=== PATIENT | female | born 1995 | race American Indian/Alaskan Native ===

== ENCOUNTER 2018-04-22 16:09 | Emergency (ER) | payer MEDICAID ==
[2018-04-22 16:25] VITALS: BP 114/51
[2018-04-22 16:50] LABS: Bacteria,Urine 2+ /HPF (Negative); Bilirubin,Urine NEG (Negative); Blood,Urine NEG (Negative); Color,Urine Yellow (Yellow); Mucus,Urine FEW /HPF; Protein,Urine <15 mg/dL mg/dL (Negative); Urobilinogen,Urine < 2.0 mg/dL (<2.0)
[2018-04-22 16:51] LABS: HCG Qualitative,Urine Positive (Negative)
--- NOTE | 2018-04-22 17:22 | Emergency Department Report ---
ED Female HPI - General Chief complaint: Urogenital-Female Stated complaint: STD TEST Time Seen by Provider: 04/22/18 17:19 Source: patient Mode of arrival: Ambulatory Limitations: No Limitations - History of Present Illness Initial comments: This is a 22-year-old female here reports that she is having vaginal discharge for 2 days. She said that she was exposed to gonorrhea from her warfarin and he told her to good check. Patient says she is but she does not many weeks. She is does not have OB follow-up and she is not taking vitamin. He denies any abdominal pain or vaginal bleeding. Denies any related concerns she just says she is here to be treated because her boyfriend told her to get checked. Pain is 0-10 MD Complaint: vaginal discharge, possible STD Onset/Timin -: days(s) Severity scale (0 -10): 0 Are you Now?: Yes Associated Symptoms: vaginal discharge. denies: vaginal bleeding, abdominal pain, nausea/vomiting, fever/chills, headaches, loss of appetite, dysuria, hematuria, rash, seizure, shortness of breath, syncope, weakness - Related Data Sexually active: Yes Previous Rx's Medication Instructions Recorded Last Taken Type Vits96/Iron Fum/Folic 1 each PO QDAY 30 Days #30 tablet 04/22/18 Unknown Rx [ Tablet] Allergies Allergy/AdvReac Type Severity Reaction Status Date / Time No Known Allergies Allergy Verified 04/22/18 16:21 ED Review of Systems ROS: Stated complaint: STD TEST Other details as noted in HPI Constitutional: denies: chills, fever ENT: denies: ear pain, throat pain, congestion Respiratory: denies: cough, shortness of breath, wheezing Cardiovascular: denies: chest pain, palpitations, edema, syncope Gastrointestinal: denies: abdominal pain, nausea, vomiting, diarrhea, constipation, hematemesis, hematochezia Genitourinary: discharge. denies: urgency, dysuria, frequency, hematuria Musculoskeletal: denies: back pain, joint swelling, arthralgia, myalgia Skin: denies: rash Neurological: denies: headache, numbness, paresthesias, abnormal gait, vertigo ED Past Medical Hx - Past Medical History Previous Medical History?: No Hx Hypertension: No Hx Diabetes: No Hx Deep Vein Thrombosis: No Hx Renal Disease: No Hx Sickle Cell Disease: No Hx Seizures: No Hx Asthma: No - Surgical History Past Surgical History?: Yes Additional Surgical History: csection - Family History Family history: hypertension - Social History Smoking Status: Never Smoker Substance Use Type: None - Medications Home Medications: Home Medications Medication Instructions Recorded Confirmed Last Taken Type Vits96/Iron Fum/Folic 1 each PO QDAY 30 Days #30 tablet 04/22/18 Unknown Rx [ Tablet] ED Physical Exam - General Limitations: No Limitations General appearance: alert, in no apparent distress - Head Head exam: Present: atraumatic, normocephalic, normal inspection - ENT ENT exam: Present: normal exam, normal orophraynx, mucous membranes moist - Neck Neck exam: Present: normal inspection, full ROM. Absent: tenderness, lymphadenopathy - Respiratory Respiratory exam: Present: normal lung sounds bilaterally. Absent: respiratory distress, chest wall tenderness - Cardiovascular Cardiovascular Exam: Present: regular rate, normal rhythm, normal heart sounds - GI/Abdominal GI/Abdominal exam: Present: soft, tenderness (left lower quadrant mild tenderness), normal bowel sounds. Absent: distended, guarding, rebound, rigid, organomegaly - Extremities Exam Extremities exam: Present: normal inspection, full ROM, normal capillary refill, other (No cce. + 2 pulses in all extremities, no neurovascular compromise). Absent: tenderness, pedal edema, joint swelling, calf tenderness - Back Exam Back exam: Present: normal inspection, full ROM, other (ambulates without any difficulties). Absent: CVA tenderness (R), CVA tenderness (L), rash noted - Neurological Exam Neurological exam: Present: alert, oriented X3, normal gait - Psychiatric Psychiatric exam: Present: normal affect, normal mood - Skin Skin exam: Present: warm, dry, intact, normal color. Absent: rash ED Course Vital Signs 04/22/18 16:22 Temperature 98 F Pulse Rate 73 Respiratory 16 Rate Blood Pressure 114/51 O2 Sat by Pulse 100 Oximetry - Reevaluation(s) Reevaluation #1: 04/22/18 18:38 Patient treated with Rocephin 250 mg and a azithromycin 1 g to treat gonorrhea and chlamydia as she says she was exposed to gonorrhea from her boyfriend. No adverse reaction. ED Medical Decision Making - Lab Data Lab Results 04/22/18 Range/Units 16:35 Urine Color Yellow (Yellow) Urine Turbidity Clear (Clear) Urine pH 8.0 H (5.0-7.0) Ur Specific [place] 1.011 (1.003-1.030) Urine Protein <15 mg/dl (Negative) mg/dL Urine Glucose (UA) Neg (Negative) mg/dL Urine Ketones Neg (Negative) mg/dL Urine Blood Neg (Negative) Urine Nitrite Neg (Negative) Urine Bilirubin Neg (Negative) Urine Urobilinogen < 2.0 (<2.0) mg/dL Ur Leukocyte Esterase Neg (Negative) Urine WBC (Auto) 1.0 (0.0-6.0) /HPF Urine RBC (Auto) 1.0 (0.0-6.0) /HPF U Epithel Cells (Auto) < 1.0 (0-13.0) /HPF Urine Bacteria (Auto) 2+ (Negative) /HPF Urine Mucus Few /HPF Urine HCG, Qual Positive A (Negative) Gonorrhea and Chlamydia sent and pending - Medical Decision Making This is a 22-year-old female here reports that she is and her boyfriend told her that he was treated for gonorrhea so she needs to get tested. Patient is here requesting STD testing. She has a vaginal discharge and she agreed to be treated therefore she was treated with Rocephin 250 mg IM and azithromycin 1 g by mouth without any adverse reaction. Patient is not having any related problems. She does not have [facility] so refer her to my [facility] who is on- call and I will start her on vitamin. I discussed diagnosis, treatment plan and told her that she needs to return to follow-up with [facility] and started on vitamin. I discussed her if she had vaginal pain or abdominal pain to return to the emergency room and to refrain from having sexual activity over the next 2 weeks and to return to medical records department in 4-5 days with her ID to get her gonorrhea and chlamydia tests results. She agreed and discharged home a prescription for vitamins Critical care attestation.: If time is entered above; I have spent that time in minutes in the direct care of this critically ill patient, excluding procedure time. ED Disposition Clinical Impression: Exposure to STD Vaginal discharge during Qualifiers: Trimester: first trimester Qualified Code(s): O26.891 - Other specified related conditions, first trimester; N89.8 - Other specified noninflammatory disorders of vagina Disposition: DC-01 TO HOME OR SELFCARE Is pt being admited?: No Does the pt Need Aspirin: No Condition: Stable Instructions: Safe Sex (ED), Sexually Transmitted Diseases (ED) Additional Instructions: Please follow up with my [facility] in 3 days regarding in and start taking vitamin You are treated for gonorrhea and chlamydia and emergency room and he will need to get checked in 7 days to make sure that it is eradicated. You can returns to medical records department in 4-5 days to get your gonorrhea and chlamydia test results3 Few develop abdominal pain and vaginal bleeding. Return to the emergency room TEJA otherwise scheduled appointment to see [facility] Prescriptions: Vits96/Iron Fum/Folic [ Tablet] 1 each PO QDAY 30 Days #30 tablet Referrals: [facility] [Provider Group] - 2-3 Days [facility] [Provider Group] - 2-3 Days Forms: Work/School Release Form(ED)
[2018-04-22] MEDS ORDERED: ZITHROMAX PO ONE (18:02)
[2018-04-22] MEDS ORDERED: ROCEPHIN IM ONE (18:02)
[2018-04-22] MEDS ORDERED: XYLOCAINE 1% MPF 5 mL INFILTRATI ONE (18:02)
== END 2018-04-22 19:08 | disposition home or self-care (01) ==
LOC: ED 16:09
DX: O26.891 Other specified pregnancy related conditions, first trimester (principal); N89.8 Other specified noninflammatory disorders of vagina; Z20.2 Contact with and (suspected) exposure to infections with a predominantly sexual mode of transmission; Z3A.01 Less than 8 weeks gestation of pregnancy
CPT/HCPCS: 81001; 81025; 87591; 96372; 99283; J0696

== ENCOUNTER 2018-07-04 16:05 | Emergency (ER) | payer MEDICAID ==
--- NOTE | 2018-07-04 16:16 | Emergency Department Report ---
Blank Doc - Documentation Documentation: This is a 22-year-old female that presents with left sided pelvic pain with va ginal discharge and dysuria. Denies any vaginal bleeding. Stated is but denies knowing how far along. This initial assessment/diagnostic orders/clinical plan/treatment(s) is/are subject to change based on patient's health status, clinical progression and re- assessment by fellow clinical providers in the ED. Further treatment and workup at subsequent clinical providers discretion. Patient/guardians urged not to elope from the ED as their condition may be serious if not clinically assessed and managed. Initial orders include: 1- Patient sent to [facility] for further evaluation and treatment 2- labs 3- UA 4- US OB
[2018-07-04 16:45] LABS: Basophils % (Auto) 0.6 % (0.0-1.8); Eosinophils % (Auto) 1.5 % (0.0-4.3); Hematocrit 25.7 % (30.3-42.9); Hemoglobin 8.8 gm/dl (10.1-14.3); Lymphocytes % (Auto) 33.3 % (13.4-35.0); Mean Corpuscular HGB Conc 34 % (30-34); Mean Corpuscular Volume 78 fl (79-97); Monocytes % (Auto) 8.8 % (0.0-7.3); Platelet Count 268 K/mm3 (140-440); Red Blood Count 3.29 M/mm3 (3.65-5.03)
[2018-07-04 16:51] LABS: Eosinophils # (Auto) 0.1 K/mm3 (0.0-0.4); Lymphocytes # (Auto) 1.9 K/mm3 (1.2-5.4); Monocytes # (Auto) 0.5 K/mm3 (0.0-0.8)
[2018-07-04 17:17] LABS: BUN/Creatinine Ratio 10; Blood Urea Nitrogen 6 mg/dL (7-17); Calcium 8.6 mg/dL (8.4-10.2); Hemolysis Index 1
--- NOTE | 2018-07-04 19:37 | Emergency Department Report ---
ED Abdominal Pain HPI - General Chief Complaint: Abdominal Pain Stated Complaint: / LFT SIDE STOMACH [id number] Time Seen by Provider: 07/04/18 16:14 Source: patient Mode of arrival: Ambulatory Limitations: No Limitations - History of Present Illness Initial Comments: This is a 22-year-old female that presents with left sided pelvic pain with vag inal discharge and dysuria. Denies any vaginal bleeding. Stated is but denies knowing how far along. pt advises not sexually active no concern for STI, there is no n/v no fever or chills, pt does endorse urinary urgency and frequency for past 4 days hx of bv MD Complaint: abdominal pain Onset/Timin -: week(s) Location: LLQ, RLQ Radiation: none Migration to: no migration Severity: moderate Severity scale (0 -10): 7 Quality: cramping Consistency: intermittent Improves With: nothing Worsens With: nothing Associated Symptoms: denies: nausea, vomiting, diarrhea, fever, chills - Related Data LMP Date: 02/07/18 LMP (females 10-50): other (G5, P4, A0 Csection x 4) Previous Rx's Medication Instructions Recorded Last Taken Type Vits96/Iron Fum/Folic 1 each PO QDAY 30 Days #30 tablet 04/22/18 Unknown Rx [ Tablet] Fluconazole [Diflucan TAB] 150 mg PO ONCE #1 tablet 07/04/18 Unknown Rx Nitrofurantoin Monohyd/M-Cryst 100 mg PO BID #14 capsule 07/04/18 Unknown Rx [Macrobid 100 mg Capsule] metroNIDAZOLE 0.75% [Vandazole 1 applicator VG BID 10 Days #1 tube 07/04/18 Unknown Rx 0.75% VAGINAL] Allergies Allergy/AdvReac Type Severity Reaction Status Date / Time No Known Allergies Allergy Verified 04/22/18 16:21 ED Review of Systems ROS: Stated complaint: / LFT SIDE STOMACH [id number] Other details as noted in HPI Constitutional: denies: chills, fever Eyes: denies: eye pain, eye discharge, vision change ENT: denies: ear pain, throat pain Respiratory: denies: cough, shortness of breath, wheezing Cardiovascular: as per HPI Endocrine: no symptoms reported Gastrointestinal: denies: nausea, vomiting, constipation Genitourinary: urgency, dysuria, frequency, discharge (white thick malodorous ). denies: hematuria, abnormal menses, dyspareunia Musculoskeletal: denies: back pain, joint swelling, arthralgia Skin: denies: rash, lesions Neurological: denies: headache, weakness, paresthesias Psychiatric: denies: anxiety, depression Hematological/Lymphatic: denies: easy bleeding, easy bruising ED Past Medical Hx - Past Medical History Previous Medical History?: No Hx Hypertension: No Hx Diabetes: No Hx Deep Vein Thrombosis: No Hx Renal Disease: No Hx Sickle Cell Disease: No Hx Seizures: No Hx Asthma: No - Surgical History Past Surgical History?: Yes Additional Surgical History: csection - Social History Smoking Status: Never Smoker Substance Use Type: None - Medications Home Medications: Home Medications Medication Instructions Recorded Confirmed Last Taken Type Vits96/Iron Fum/Folic 1 each PO QDAY 30 Days #30 tablet 04/22/18 Unknown Rx [ Tablet] Fluconazole [Diflucan TAB] 150 mg PO ONCE #1 tablet 07/04/18 Unknown Rx Nitrofurantoin Monohyd/M-Cryst 100 mg PO BID #14 capsule 07/04/18 Unknown Rx [Macrobid 100 mg Capsule] metroNIDAZOLE 0.75% [Vandazole 1 applicator VG BID 10 Days #1 tube 07/04/18 Unknown Rx 0.75% VAGINAL] ED Physical Exam - General Limitations: No Limitations General appearance: alert, in no apparent distress - Head Head exam: Present: atraumatic, normocephalic - Eye Eye exam: Present: PERRL, EOMI - ENT ENT exam: Present: mucous membranes moist - Neck Neck exam: Present: normal inspection - Respiratory Respiratory exam: Present: normal lung sounds bilaterally. Absent: respiratory distress - Cardiovascular Cardiovascular Exam: Present: regular rate, normal rhythm. Absent: systolic murmur, diastolic murmur, rubs, gallop - GI/Abdominal GI/Abdominal exam: Present: soft, normal bowel sounds. Absent: distended, tenderness, guarding, rebound, rigid, bruit, hernia - Rectal Rectal exam: Present: deferred - External exam: Present: normal external exam. Absent: erythema, swelling, lesions, lacerations, ecchymosis, bleeding Speculum exam: Present: erythema, vaginal discharge (mild white thick malodorous ). Absent: cervical discharge, vaginal bleeding, foreign body, tissue, laceration Bi-manual exam: Absent: cervical motion tendernes - Extremities Exam Extremities exam: Present: normal inspection, full ROM - Back Exam Back exam: Present: normal inspection, full ROM. Absent: tenderness, CVA tenderness (R), CVA tenderness (L), muscle spasm, paraspinal tenderness, rash noted - Neurological Exam Neurological exam: Present: alert, oriented X3, normal gait, reflexes normal - Psychiatric Psychiatric exam: Present: normal affect, normal mood - Skin Skin exam: Present: warm, dry, intact, normal color. Absent: rash ED Course Vital Signs 07/04/18 07/04/18 16:15 19:57 Temperature 98.3 F 97.4 F L Pulse Rate 82 68 Respiratory 16 20 Rate Blood Pressure 116/62 Blood Pressure 105/50 [Left] O2 Sat by Pulse 100 99 Oximetry ED Medical Decision Making - Lab Data Result diagrams: 07/04/18 16:27 07/04/18 16:27 Labs 07/04/18 07/04/18 07/04/18 16:27 16:27 16:27 WBC 5.6 RBC 3.29 L Hgb 8.8 L Hct 25.7 L MCV 78 L MCH 27 L MCHC 34 RDW 17.0 H Plt Count 268 Lymph % (Auto) 33.3 [place] % (Auto) 8.8 H Eos % (Auto) 1.5 Baso % (Auto) 0.6 Lymph # 1.9 [place] # 0.5 Eos # 0.1 Baso # 0.0 Seg Neutrophils % 55.8 Seg Neutrophils # 3.1 Sodium 137 Potassium 3.6 Chloride 102.8 Carbon Dioxide 25 Anion Gap 13 BUN 6 L Creatinine 0.6 L Estimated GFR > 60 BUN/Creatinine Ratio 10 Glucose 92 Calcium 8.6 HCG, Quant 44791 H Urine Color Urine Turbidity Urine pH Ur Specific [place] Urine Protein Urine Glucose (UA) Urine Ketones Urine Blood Urine Nitrite Urine Bilirubin Urine Urobilinogen Ur Leukocyte Esterase Urine WBC (Auto) Urine RBC (Auto) U Epithel Cells (Auto) Urine Bacteria (Auto) Urine Mucus Urine Yeast (Budding) 07/04/18 19:20 WBC RBC Hgb Hct MCV MCH MCHC RDW Plt Count Lymph % (Auto) [place] % (Auto) Eos % (Auto) Baso % (Auto) Lymph # [place] # Eos # Baso # Seg Neutrophils % Seg Neutrophils # Sodium Potassium Chloride Carbon Dioxide Anion Gap BUN Creatinine Estimated GFR BUN/Creatinine Ratio Glucose Calcium HCG, Quant Urine Color Yellow Urine Turbidity Slightly-cloudy Urine pH 6.0 Ur Specific [place] 1.031 H Urine Protein 30 mg/dl Urine Glucose (UA) Neg Urine Ketones Tr Urine Blood Neg Urine Nitrite Pos Urine Bilirubin Neg Urine Urobilinogen 4.0 Ur Leukocyte Esterase Tr Urine WBC (Auto) 10.0 H Urine RBC (Auto) 4.0 U Epithel Cells (Auto) 2.0 Urine Bacteria (Auto) 4+ Urine Mucus 3+ Urine Yeast (Budding) 1+ he has - Radiology Data Radiology results: report reviewed, image reviewed cc: AMY DURAN NP PROCEDURE: US OB >= 14 WEEKS FETUS TECHNIQUE: Limited transabdominal OB ultrasound was performed. measurements were obtained. HISTORY: pelvic pain COMPARISONS: None FINDINGS: Single living intrauterine gestation visualized currently transverse presentation head on maternal left with a heart rate of 101 bpm. Placenta is located anteriorly and is grade 1. No evidence of placenta abruption. No evidence of placenta previa. None of amniotic fluid appears normal. Detailed examination of the anatomy was not performed as this was not requested. No gross abnormalities seen on the images provided. measurements were obtained. BPD 4.3 cm equals 18 weeks 6 days HC 16.9 cm = 19 week 4 day. AC 15.1 cm equals 20 weeks 2 days FL 3.5 cm equals 21 weeks 0 days. Average sonographic age 20 weeks 0 days Estimated weight 356 g IMPRESSION: Single living intrauterine gestation visualized currently transverse presentation head on the maternal left. Anterior placenta without evidence of abruption or previa. Average sonographic age 20 weeks 0 days. This places the EDC at 11/21/2018 +/- 1.5 weeks. Detailed examination of the anatomy was not performed as this was not requested. No gross abnormalities are seen. . This document is electronically signed by Liana Cárdenas MD., July 04 2018 07:57:53 PM ET Transcribed By: DFN Dictated By: LIANA CÁRDENAS MD Electronically Authenticated By: LIANA CÁRDENAS MD Signed Date/Time: 07/04/181999 DD/ 44 TD/TT: 07/04/181845 - Medical Decision Making US OB: live IUP 20 weeks, FHR: 101, UA: pos nitrates wbc, luek, plan: tx for UTI, BV, pt will follow up with OBGYN in 2 days return to ed if symptoms worsen, pt verbalized agreement and understanding of discharge plan. Critical care attestation.: If time is entered above; I have spent that time in minutes in the direct care of this critically ill patient, excluding procedure time. ED Disposition Clinical Impression: Urinary tract infection during Qualifiers: Trimester: second trimester Qualified Code(s): O23.42 - Unspecified infection of urinary tract in , second trimester Abdominal pain during Qualifiers: Trimester: second trimester Qualified Code(s): O26.892 - Other specified related conditions, second trimester; R10.9 - Unspecified abdominal pain Disposition: TO HOME OR SELFCARE Is pt being admited?: No Does the pt Need Aspirin: No Condition: Stable Instructions: Abdominal Pain (ED), Urinary Tract Infection in Children (ED), (ED) Prescriptions: Fluconazole [Diflucan TAB] 150 mg PO ONCE #1 tablet Nitrofurantoin Monohyd/M-Cryst [Macrobid 100 mg Capsule] 100 mg PO BID #14 capsule metroNIDAZOLE 0.75% [Vandazole 0.75% VAGINAL] 1 applicator VG BID 10 Days #1 tube Referrals: BRYAN CUNNINGHAM MD [Staff Physician] - 3-5 Days Forms: Work/School Release Form(ED) Time of Disposition: 21:34
[2018-07-04 19:58] VITALS: BP 105/50
--- NOTE | 2018-07-04 20:00 | Ultrasound Report ---
PROCEDURE: US OB >= 14 WEEKS FETUS TECHNIQUE: Limited transabdominal OB ultrasound was performed. measurements were obtained. HISTORY: pelvic pain COMPARISONS: None FINDINGS: Single living intrauterine gestation visualized currently transverse presentation head on maternal le ft with a heart rate of 101 bpm. Placenta is located anteriorly and is grade 1. No evidence of placenta abruption. No evidence of placenta previa. None of amniotic fluid appears normal. Detailed e xamination of the anatomy was not performed as this was not requested. No gross abnormalities s een on the images provided. measurements were obtained. BPD 4.3 cm equals 18 weeks 6 days HC 16.9 cm = 19 week 4 day. AC 15.1 cm equals 20 weeks 2 days FL 3.5 cm equals 21 weeks 0 days. Average sonographic age 20 weeks 0 days Estimated weight 356 g IMPRESSION: Single living intrauterine gestation visualized currently transverse presentation head on the materna l left. Anterior placenta without evidence of abruption or previa. Average sonographic age 20 weeks 0 days. This places the EDC at 11/21/2018 +/- 1.5 weeks. Detailed examination of the anatomy was not performed as this was not requested. No gross abnor malities are seen. . This document is electronically signed by Ezequiel Cárdenas MD., July 04 2018 07:57:53 PM ET
[2018-07-04 20:06] LABS: Bacteria,Urine 4+ /HPF (Negative); Bilirubin,Urine NEG (Negative); Blood,Urine NEG (Negative); Color,Urine Yellow (Yellow); Mucus,Urine 3+ /HPF
== END 2018-07-04 21:40 | disposition home or self-care (01) ==
LOC: ED 16:05
DX: O23.42 Unspecified infection of urinary tract in pregnancy, second trimester (principal); Z3A.20 20 weeks gestation of pregnancy
CPT/HCPCS: 36415; 76805; 80048; 81001; 84702; 85025; 99284